=== PATIENT | male | born 1945 | race Caucasian/White ===

== ENCOUNTER 2017-03-04 08:54 | Inpatient (IN) | payer MEDICAID, OTHER ==
[~2017-03-04] VITALS: Ht 165.1 cm; Wt 79.4 kg
[~2017-03-04 08:54] MED LIST: FLUT1DIS3 INH; GLIP10TA10 PO; IPRA4AER IH; LISI10TA5 PO; METF10002 PO; PREDNISONE PO; TAMS0.4C31 PO
[2017-03-04] MEDS ORDERED: IPRATROPIUM/ALBUTEROL 0.5-3(2.5)MG/3ML NEB HHN ONE ×2 (10:45→17:00)
[2017-03-04] MEDS ORDERED: METHYLPREDNISOLONE SOD SUCC 40 MG/ML VIAL IV ONE (11:30)
[2017-03-04 11:31] LABS: BASOPHILS % 0.8 % (0.0-2.0); EOSINOPHILS % 2.7 % (0.0-5.0); HEMATOCRIT. 36.9 % (42.0-52.0); HEMOGLOBIN. 12.6 g/dL (14.0-18.0); LYMPHOCYTES % 18.9 % (20.0-50.0); MEAN CORPUSCULAR HEMOGLOBIN 27.8 pg (28.0-32.0); MEAN CORPUSCULAR VOLUME 81.3 fL (80.0-94.0); MEAN PLATELET VOLUME 8.4 fl (7.4-10.4); MONOCYTES % 12.4 % (2.0-8.0); NEUTROPHILS % 65.2 % (40.0-76.0); PLATELET 195 x1000/uL (130-400); RED BLOOD CELL COUNT 4.54 mill/uL (4.7-6.1)
[2017-03-04 11:45] LABS: CARBON DIOXIDE 29 mEq/L (21-32); CHLORIDE 106 mEq/L (98-107)
[2017-03-04 11:47] LABS: BG BASE EXCESS 4.2 mmol/L (-2.0-2.0); BG CARBOXYHEMOGLOBIN 0.3 % (0.5-1.5); BG DEOXYHEMOGLOBIN 4.8 % (0.0-5.0); BG FRACTION INSPIRED OXYGEN 28; BG HCO3 ACT 28.4 mmol/L (22.0-26.0); BG METHEMOGLOBIN 0.1 % (0.0-1.5); BG OXYGEN SATURATION 95.2 % (92.0-98.5); BG OXYHEMOGLOBIN 94.8 % (94.0-97.0); BG PCO2 40.9 mmHg (35.0-45.0); BG PH 7.459 (7.350-7.450); BG PO2 74.8 mmHg (75.0-100.0); BG SAMPLE SITE RIGHT RADIAL; BG TOTAL HEMOGLOBIN 13.1 g/dL (12.0-18.0); BG VENT MODE NASAL CANNULA
[2017-03-04 11:57] LABS: CLARITY URINE CLEAR (CLEAR); COLOR URINE YELLOW (YELLOW); GLUCOSE URINE NEGATIVE (NEGATIVE); KETONES URINE NEGATIVE (NEGATIVE); LEUKOCYTE ESTERASE URINE NEGATIVE (NEGATIVE); NITRITE URINE NEGATIVE (NEGATIVE); OCCULT BLOOD URINE NEGATIVE (NEGATIVE); PH URINE 6.5 (4.5-8.0); PROTEIN URINE NEGATIVE (NEGATIVE); SPECIFIC GRAVITY URINE 1.021 (1.005-1.030)
[2017-03-04 12:48] LABS: *AMPHETAMINES SCREEN URINE NEGATIVE (NEGATIVE); *BARBITURATES SCREEN URINE NEGATIVE (NEGATIVE); *BENZODIAZEPINES SCREEN URINE NEGATIVE (NEGATIVE); *COCAINE SCREEN URINE NEGATIVE (NEGATIVE); CANNABINOID URINE SCREEN NEGATIVE (NEGATIVE); METHADONE URINE SCREEN NEGATIVE (NEGATIVE); OPIATES URINE SCREEN NEGATIVE (NEGATIVE); PHENCYCLIDINE URINE SCREEN NEGATIVE (NEGATIVE)
[2017-03-04] MEDS ORDERED: POTASSIUM CHLORIDE 20MEQ TABLET SR PO ONE (13:00)
[2017-03-04 18:44] VITALS: BP 131/59
[2017-03-04 20:00] VITALS: BP 131/65
[2017-03-04 21:30] VITALS: BP 131/65
[2017-03-04] MEDS ORDERED: NA PHOS,M-B/NA PHOS,DI-BA ENEMA 118ML PR PRN (21:30)
[2017-03-04] MEDS ORDERED: DEXTROSE 50% WATER 50ML SYRINGE IV PRN (21:30)
[2017-03-04] MEDS ORDERED: ACETAMINOPHEN 325MG TABLET PO PRN (21:30)
[2017-03-04] MEDS ORDERED: CLONIDINE 0.1MG TABLET PO PRN (21:30)
[2017-03-04] MEDS ORDERED: ACETAMINOPHEN 650MG SUPP PR PRN (21:30)
[2017-03-04] MEDS ORDERED: ACETAMINOPHEN 650MG/20.3ML UDC GT PRN (21:30)
[2017-03-04] MEDS ORDERED: ONDANSETRON HCL 4MG/2ML VIAL IV PRN (22:04)
[2017-03-04] MEDS ORDERED: MAGNESIUM/ALUMINUM HYDROXIDE/SIMETHICONE 30ML UDC PO PRN (22:05)
[2017-03-04] MEDS ORDERED: HYDROCODONE/ACETAMINOPHEN 5/325MG TABLET PO PRN (22:05)
[2017-03-04] MEDS ORDERED: IPRATROPIUM/ALBUTEROL 0.5-3(2.5)MG/3ML NEB INH PRN (22:05)
[2017-03-04] MEDS ORDERED: IPRATROPIUM/ALBUTEROL 0.5-3(2.5)MG/3ML NEB ONE (22:13)
[2017-03-04] MEDS: GLIPIZIDE 10MG TABLET PO SCH (22:34)
[2017-03-04] MEDS: TAMSULOSIN HCL 0.4MG SR CAPSULE PO SCH (22:34)
[2017-03-04] MEDS: LISINOPRIL 10MG TABLET PO SCH (22:35)
[2017-03-04] MEDS: SODIUM CHLORIDE 0.9% INJ 3ML FLUSH IVF SCH (22:35)
[2017-03-04] MEDS: METHYLPREDNISOLONE SOD SUCC 125 MG/2 ML VIAL IV SCH (22:35)
[2017-03-05] VITALS: BP 142/86
[2017-03-05] MEDS: IPRATROPIUM/ALBUTEROL 0.5-3(2.5)MG/3ML NEB INH SCH ×5 (01:46→20:32)
[2017-03-05 04:00] VITALS: BP 131/68
[2017-03-05] MEDS ORDERED: GUAIFENESIN 200MG TABLET PO PRN (06:00)
[2017-03-05] MEDS: BLOOD SUGAR DIAGNOSTIC STRIP TEST SCH ×4 (06:24→21:00)
[2017-03-05] MEDS: SODIUM CHLORIDE 0.9% INJ 3ML FLUSH IVF SCH ×3 (06:29→23:24)
[2017-03-05] MEDS: METHYLPREDNISOLONE SOD SUCC 125 MG/2 ML VIAL IV SCH ×4 (06:30→23:23)
[2017-03-05 06:39] LABS: CARBON DIOXIDE 28 mEq/L (21-32); CHLORIDE 102 mEq/L (98-107)
[2017-03-05 08:00] VITALS: BP 141/74
[2017-03-05] MEDS: TAMSULOSIN HCL 0.4MG SR CAPSULE PO SCH (08:00)
[2017-03-05] MEDS: GLIPIZIDE 10MG TABLET PO SCH ×2 (08:00→17:14)
[2017-03-05] MEDS: LISINOPRIL 10MG TABLET PO SCH (08:01)
[2017-03-05] MEDS: INSULIN LISPRO 100 UNITS/ML SUBCUT SCH ×4 (08:35→23:57)
[2017-03-05 12:00] VITALS: BP 132/70
[2017-03-05] MEDS: GUAIFENESIN 600MG ER TABLET PO SCH ×2 (12:54→23:22)
[2017-03-05] MEDS: BUDESONIDE 0.5MG/2ML NEB HHN SCH ×2 (13:36→20:37)
[2017-03-05 16:00] VITALS: BP 135/61
[2017-03-05 19:32] LABS: HEMATOCRIT. 40.1 % (42.0-52.0); HEMOGLOBIN. 13.7 g/dL (14.0-18.0); MEAN CORPUSCULAR HEMOGLOBIN 27.7 pg (28.0-32.0); PLATELET 218 x1000/uL (130-400); RED BLOOD CELL COUNT 4.95 mill/uL (4.7-6.1); RED CELL DISTRIBUTION WIDTH 13.9 % (11.6-14.6)
[2017-03-05 19:36] LABS: CHLORIDE 102 mEq/L (98-107)
[2017-03-05 19:45] LABS: CARBON DIOXIDE 27 mEq/L (21-32)
[2017-03-05 20:00] VITALS: BP 142/70
[2017-03-05 21:24] LABS: PLATELET ESTIMATE NORMAL
[2017-03-06] VITALS: BP 142/63
[2017-03-06] MEDS: IPRATROPIUM/ALBUTEROL 0.5-3(2.5)MG/3ML NEB INH SCH ×6 (00:27→20:43)
[2017-03-06 04:00] VITALS: BP 133/64
[2017-03-06] MEDS: METHYLPREDNISOLONE SOD SUCC 125 MG/2 ML VIAL IV SCH (07:17)
[2017-03-06] MEDS: SODIUM CHLORIDE 0.9% INJ 3ML FLUSH IVF SCH ×3 (07:20→22:25)
[2017-03-06] MEDS: BLOOD SUGAR DIAGNOSTIC STRIP TEST SCH ×4 (07:20→21:16)
[2017-03-06 08:00] VITALS: BP 126/63
[2017-03-06] MEDS: BUDESONIDE 0.5MG/2ML NEB HHN SCH ×3 (08:10→20:43)
[2017-03-06] MEDS: LISINOPRIL 10MG TABLET PO SCH (08:21)
[2017-03-06] MEDS: GLIPIZIDE 10MG TABLET PO SCH ×2 (08:21→18:32)
[2017-03-06] MEDS: TAMSULOSIN HCL 0.4MG SR CAPSULE PO SCH (08:21)
[2017-03-06] MEDS: GUAIFENESIN 600MG ER TABLET PO SCH ×2 (08:21→21:12)
[2017-03-06] MEDS: INSULIN LISPRO 100 UNITS/ML SUBCUT SCH ×4 (08:40→21:29)
[2017-03-06 12:00] VITALS: BP 132/78
[2017-03-06] MEDS: METHYLPREDNISOLONE SOD SUCC 40 MG/ML VIAL IV SCH ×2 (13:32→22:25)
[2017-03-06 16:00] VITALS: BP 130/64
[2017-03-06 19:48] LABS: HEMOGLOBIN. 13.6 g/dL (14.0-18.0); MEAN CORPUSCULAR HEMOGLOBIN 27.7 pg (28.0-32.0); MEAN CORPUSCULAR VOLUME 81.5 fL (80.0-94.0); MEAN PLATELET VOLUME 8.8 fl (7.4-10.4); PLATELET 214 x1000/uL (130-400); RED CELL DISTRIBUTION WIDTH 13.8 % (11.6-14.6)
[2017-03-06 20:07] LABS: CHLORIDE 100 mEq/L (98-107)
[2017-03-06 20:14] LABS: CARBON DIOXIDE 26 mEq/L (21-32)
[2017-03-06 21:34] LABS: PLATELET ESTIMATE NORMAL
[2017-03-07] MEDS: IPRATROPIUM/ALBUTEROL 0.5-3(2.5)MG/3ML NEB INH SCH ×6 (00:37→21:29)
[2017-03-07] MEDS: METHYLPREDNISOLONE SOD SUCC 40 MG/ML VIAL IV SCH (05:29)
[2017-03-07] MEDS: BLOOD SUGAR DIAGNOSTIC STRIP TEST SCH ×4 (06:53→20:26)
[2017-03-07] MEDS: LISINOPRIL 10MG TABLET PO SCH (07:51)
[2017-03-07] MEDS: GUAIFENESIN 600MG ER TABLET PO SCH (07:51)
[2017-03-07] MEDS: GLIPIZIDE 10MG TABLET PO SCH ×2 (07:52→17:47)
[2017-03-07] MEDS: TAMSULOSIN HCL 0.4MG SR CAPSULE PO SCH (07:52)
[2017-03-07] MEDS: INSULIN LISPRO 100 UNITS/ML SUBCUT SCH ×4 (07:54→21:01)
[2017-03-07 08:00] VITALS: BP 139/73
[2017-03-07 12:00] VITALS: BP 138/72
[2017-03-07] MEDS: SODIUM CHLORIDE 0.9% INJ 3ML FLUSH IVF SCH ×2 (14:09→22:05)
[2017-03-07] MEDS ORDERED: PROMETHAZINE/DEXTROMETHORPHAN 6.25-15MG/5ML BOTTLE 120ML PO PRN (14:30)
[2017-03-07 16:00] VITALS: BP 125/68
[2017-03-07] MEDS: PREDNISONE 20MG TABLET PO SCH (17:47)
[2017-03-07 20:00] VITALS: BP 132/67
[2017-03-07] MEDS: BUDESONIDE 0.5MG/2ML NEB HHN SCH (21:31)
[2017-03-08] VITALS: BP 136/67
[2017-03-08] MEDS: PROMETHAZINE LIQUID 6.25MG/5ML 118ML PO SCH ×3 (00:32→11:22)
[2017-03-08] MEDS: IPRATROPIUM/ALBUTEROL 0.5-3(2.5)MG/3ML NEB INH SCH ×4 (00:58→11:41)
[2017-03-08] MEDS: SODIUM CHLORIDE 0.9% INJ 3ML FLUSH IVF SCH (06:37)
[2017-03-08] MEDS: BLOOD SUGAR DIAGNOSTIC STRIP TEST SCH ×2 (06:40→12:14)
[2017-03-08] MEDS: BUDESONIDE 0.5MG/2ML NEB HHN SCH (07:50)
[2017-03-08 08:00] VITALS: BP 153/62
[2017-03-08] MEDS: INSULIN LISPRO 100 UNITS/ML SUBCUT SCH (08:22)
[2017-03-08] MEDS: GLIPIZIDE 10MG TABLET PO SCH (08:27)
[2017-03-08] MEDS: PREDNISONE 20MG TABLET PO SCH (08:28)
[2017-03-08] MEDS: TAMSULOSIN HCL 0.4MG SR CAPSULE PO SCH (08:28)
[2017-03-08] MEDS: LISINOPRIL 10MG TABLET PO SCH (08:28)
[2017-03-08 12:00] VITALS: BP 140/56
[2017-03-08 12:53] VITALS: BP 140/56
== END 2017-03-08 13:10 | disposition home or self-care (01) | DRG 140 ==
LOC: ER 11:03 → 6EST 16:10 → EDBEDREQ 16:14 → ENRESERV 16:25
PROVIDERS: ADMIT Family Medicine; ATTEND Family Medicine
DX: J44.1 Chronic obstructive pulmonary disease with (acute) exacerbation (principal); J96.00 Acute respiratory failure, unspecified whether with hypoxia or hypercapnia; E11.00 Type 2 diabetes mellitus with hyperosmolarity without nonketotic hyperglycemic-hyperosmolar coma (NKHHC); E11.9 Type 2 diabetes mellitus without complications; I10 Essential (primary) hypertension; J20.9 Acute bronchitis, unspecified; E78.00 Pure hypercholesterolemia, unspecified; J44.0 Chronic obstructive pulmonary disease with (acute) lower respiratory infection; Z79.84 Long term (current) use of oral hypoglycemic drugs; Z79.899 Other long term (current) drug therapy
CPT/HCPCS: 36415; 36600; 71010; 80053; 80305; 81003; 82375; 82805; 82962; 83036; 85025; 85651; 93005; 94640; 94664; 96374; 99285; J1815; J2920; J2930; J7512; J7620; J7626; Q0169

== ENCOUNTER 2022-05-28 14:04 | Inpatient (IN) | payer MEDICAID ==
[~2022-05-28] VITALS: Ht 165.1 cm; Wt 76.9 kg
[~2022-05-28 14:04] MED LIST changes: +ALBU18HF2 IH; +ATOR-2 MT; +FINA1TAB18 MT; +FLUT1DIS3 IH; +INSU100I28 SQ; +IPRA3AMP9 NEB; +LEVO25TA7 MT; +LEVO500T2 MT; -LISI10TA5 PO; +LOSA1TAB37 MT; +METF-416 PO; -METF10002 PO; +P20 MT; -PREDNISONE PO; +TAMS-11 MT; -TAMS0.4C31 PO
[2022-05-28] MEDS ORDERED: METHYLPREDNISOLONE SOD SUCC 125 MG/2 ML VIAL IV STA (14:08)
[2022-05-28] MEDS ORDERED: IPRATROPIUM BROMIDE (0.02%) 0.5MG/2.5ML NEB HHN STA (14:08)
[2022-05-28] MEDS ORDERED: MAGNESIUM 2 G PREMIX 50 ML IV ONE (14:15)
[2022-05-28] MEDS: ALBUTEROL (0.083%) 2.5MG/3ML NEB HHN SCH ×3 (14:36→14:38)
[2022-05-28 14:49] LABS: BASOPHILS % 0.8 % (0.0-2.0); EOSINOPHILS % 1.2 % (0.0-5.0); HEMATOCRIT. 33.3 % (42.0-52.0); HEMOGLOBIN. 11.2 g/dL (14.0-18.0); LYMPHOCYTES % 18.8 % (20.0-50.0); MEAN CORPUSCULAR HEMOGLOBIN 27.8 pg (28.0-32.0); MEAN CORPUSCULAR VOLUME 82.8 fL (80.0-94.0); MEAN PLATELET VOLUME 8.4 fl (7.4-10.4); MONOCYTES % 9.2 % (2.0-8.0); PLATELET 158 x1000/uL (130-400); RED BLOOD CELL COUNT 4.02 mill/uL (4.7-6.1); RED CELL DISTRIBUTION WIDTH 17.5 % (11.6-14.6)
[2022-05-28 14:55] LABS: CHLORIDE 100 mEq/L (98-107)
[2022-05-28 15:12] LABS: PARTIAL THROMBOPLASTIN TIME 22.5 sec (23.4-31.0); PROTHROMBIN TIME 10.3 sec (9.6-11.0)
[2022-05-28 17:30] LABS: BG BASE EXCESS 6.3 mmol/L (-2.0-2.0); BG CARBOXYHEMOGLOBIN 0.4 % (0.5-1.5); BG DEOXYHEMOGLOBIN 3.4 % (0.0-5.0); BG FRACTION INSPIRED OXYGEN 30; BG HCO3 ACT 30.9 mmol/L (22.0-26.0); BG METHEMOGLOBIN 0.6 % (0.0-1.5); BG OXYGEN SATURATION 96.6 % (92.0-98.5); BG OXYHEMOGLOBIN 95.6 % (94.0-97.0); BG PCO2 44.9 mmHg (35.0-45.0); BG PH 7.456 (7.350-7.450); BG PO2 84.8 mmHg (75.0-100.0); BG SAMPLE SITE LEFT RADIAL; BG TOTAL HEMOGLOBIN 11.6 g/dL (12.0-18.0); BG TOTAL RESPIRATORY RATE 26 b/min; BG VENT MODE MASK - BIPAP
[2022-05-28] MEDS ORDERED: AZITHROMYCIN 500MG/250ML 250 ML IV ONE (17:45)
[2022-05-28] MEDS ORDERED: HYDRALAZINE 20MG/ML VIAL IV PRN (19:15)
[2022-05-28] MEDS ORDERED: CLONIDINE 0.1MG TABLET PO PRN (19:15)
[2022-05-28] MEDS ORDERED: ACETAMINOPHEN 325MG TABLET PO PRN ×2 (19:15)
[2022-05-28] MEDS ORDERED: POTASSIUM CHLORIDE INJ 40 MEQ in DEXT 5% WATER 250 ML IV ONE (19:15)
[2022-05-28] MEDS ORDERED: DIPHENHYDRAMINE 50MG/ML VIAL IV PRN (19:15)
[2022-05-28] MEDS ORDERED: DEXTROSE 50% WATER 50ML SYRINGE IV PRN (19:15)
[2022-05-28] MEDS ORDERED: LORAZEPAM 0.5MG TABLET PO PRN (19:15)
[2022-05-28] MEDS ORDERED: IPRATROPIUM/ALBUTEROL 0.5-3(2.5)MG/3ML NEB NEB PRN (19:15)
[2022-05-28] MEDS ORDERED: ONDANSETRON HCL 4MG/2ML INJ IV PRN (19:15)
[2022-05-28] MEDS ORDERED: MAGNESIUM/ALUMINUM HYDROXIDE/SIMETHICONE 30ML UDC PO PRN (19:15)
[2022-05-28] MEDS ORDERED: ZOLPIDEM TARTRATE 5MG TABLET PO PRN (19:15)
[2022-05-28] MEDS: IPRATROPIUM/ALBUTEROL 0.5-3(2.5)MG/3ML NEB HHN SCH (21:12)
[2022-05-28] MEDS: ENOXAPARIN 40MG/0.4ML SYR SUBCUT SCH (21:15)
[2022-05-28] MEDS: KCL 20MEQ/100ML X 2 FOR TOTAL KCL 40MEQ/200ML IV SCH ×2 (21:15→22:30)
[2022-05-28] MEDS: INSULIN LISPRO 100 UNITS/ML SUBCUT SCH (21:45)
[2022-05-28] MEDS: ATORVASTATIN CALCIUM 40MG TABLET PO SCH (21:46)
[2022-05-28] MEDS: FAMOTIDINE 20MG TABLET PO SCH (21:46)
[2022-05-28] MEDS: BLOOD SUGAR DIAGNOSTIC STRIP TEST SCH (21:49)
[2022-05-28] MEDS: GUAIFENESIN 600MG ER TABLET PO SCH (22:30)
[2022-05-28] MEDS: SODIUM CHLORIDE 0.9% INJ 3ML FLUSH IVF SCH (22:56)
[2022-05-28] MEDS: INSULIN GLARGINE 100 UNITS/ML SUBCUT SCH (23:10)
[2022-05-29] VITALS (15 sets, daily range): BP systolic 123–181; BP diastolic 65–88
[2022-05-29] MEDS: IPRATROPIUM/ALBUTEROL 0.5-3(2.5)MG/3ML NEB HHN SCH ×6 (00:35→20:50)
[2022-05-29] MEDS: BLOOD SUGAR DIAGNOSTIC STRIP TEST SCH ×4 (06:03→20:51)
[2022-05-29] MEDS: LEVOTHYROXINE SODIUM 25MCG TABLET PO SCH (06:25)
[2022-05-29] MEDS: SODIUM CHLORIDE 0.9% INJ 3ML FLUSH IVF SCH ×3 (06:28→20:51)
[2022-05-29] MEDS: INSULIN LISPRO 100 UNITS/ML SUBCUT SCH ×5 (06:29→20:51)
[2022-05-29] MEDS: TAMSULOSIN HCL 0.4MG SR CAPSULE PO SCH (07:43)
[2022-05-29] MEDS: INSULIN GLARGINE 100 UNITS/ML SUBCUT SCH ×2 (07:43→21:10)
[2022-05-29] MEDS: FINASTERIDE 5MG TABLET PO SCH (07:44)
[2022-05-29] MEDS: FAMOTIDINE 20MG TABLET PO SCH ×2 (07:44→21:09)
[2022-05-29] MEDS: GUAIFENESIN 600MG ER TABLET PO SCH ×2 (07:44→21:09)
[2022-05-29] MEDS ORDERED: INFLUENZA VACCINE 05/PF 0.5 ML SYRINGE IM ONE (09:30)
[2022-05-29 10:22] LABS: BASOPHILS % 0.4 % (0.0-2.0); HEMATOCRIT. 33.4 % (42.0-52.0); MEAN CORPUSCULAR HEMOGLOBIN 27.7 pg (28.0-32.0); MEAN CORPUSCULAR VOLUME 84.1 fL (80.0-94.0); MEAN PLATELET VOLUME 8.2 fl (7.4-10.4); MONOCYTES % 9.3 % (2.0-8.0); NEUTROPHILS % 74.3 % (40.0-76.0); PLATELET 154 x1000/uL (130-400); RED BLOOD CELL COUNT 3.97 mill/uL (4.7-6.1)
[2022-05-29 10:30] LABS: CHLORIDE 103 mEq/L (98-107)
[2022-05-29 10:46] LABS: PHOSPHORUS 4.1 mg/dL (2.5-4.9)
[2022-05-29] MEDS: BUDESONIDE 0.5MG/2ML NEB HHN SCH ×2 (12:07→21:04)
[2022-05-29] MEDS ORDERED: HYDROCODONE/ACETAMINOPHEN 5/325MG TABLET PO PRN (14:30)
[2022-05-29] MEDS: MONTELUKAST SODIUM 10MG TABLET PO SCH (17:28)
[2022-05-29] MEDS: ATORVASTATIN CALCIUM 40MG TABLET PO SCH (21:09)
[2022-05-29] MEDS: ENOXAPARIN 40MG/0.4ML SYR SUBCUT SCH (21:10)
[2022-05-30] VITALS (12 sets, daily range): BP systolic 116–160; BP diastolic 63–87
[2022-05-30] MEDS: IPRATROPIUM/ALBUTEROL 0.5-3(2.5)MG/3ML NEB HHN SCH ×6 (00:36→21:19)
[2022-05-30] MEDS: INSULIN LISPRO 100 UNITS/ML SUBCUT SCH ×4 (08:00→21:12)
[2022-05-30] MEDS: BLOOD SUGAR DIAGNOSTIC STRIP TEST SCH ×4 (08:02→21:00)
[2022-05-30] MEDS: LEVOTHYROXINE SODIUM 25MCG TABLET PO SCH (08:14)
[2022-05-30] MEDS: BUDESONIDE 0.5MG/2ML NEB HHN SCH ×2 (08:27→21:26)
[2022-05-30] MEDS: TAMSULOSIN HCL 0.4MG SR CAPSULE PO SCH (09:11)
[2022-05-30] MEDS: FAMOTIDINE 20MG TABLET PO SCH ×2 (09:12→21:11)
[2022-05-30] MEDS: GUAIFENESIN 600MG ER TABLET PO SCH ×2 (09:12→21:11)
[2022-05-30] MEDS: FINASTERIDE 5MG TABLET PO SCH (09:12)
[2022-05-30] MEDS: INSULIN GLARGINE 100 UNITS/ML SUBCUT SCH ×2 (09:13→22:04)
[2022-05-30] MEDS: SODIUM CHLORIDE 0.9% INJ 3ML FLUSH IVF SCH ×2 (14:07→21:12)
[2022-05-30] MEDS ORDERED: NALOXONE HCL 0.4MG/ML VIAL IV PRN (15:45)
[2022-05-30] MEDS: MONTELUKAST SODIUM 10MG TABLET PO SCH (17:46)
[2022-05-30] MEDS: ATORVASTATIN CALCIUM 40MG TABLET PO SCH (21:11)
[2022-05-30] MEDS: ENOXAPARIN 40MG/0.4ML SYR SUBCUT SCH (21:11)
[2022-05-31] VITALS (14 sets, daily range): BP systolic 125–170; BP diastolic 33–112
[2022-05-31] MEDS: IPRATROPIUM/ALBUTEROL 0.5-3(2.5)MG/3ML NEB HHN SCH ×6 (01:27→20:13)
[2022-05-31] MEDS: SODIUM CHLORIDE 0.9% INJ 3ML FLUSH IVF SCH ×3 (06:00→22:00)
[2022-05-31] MEDS: BLOOD SUGAR DIAGNOSTIC STRIP TEST SCH ×4 (07:30→21:00)
[2022-05-31] MEDS: BUDESONIDE 0.5MG/2ML NEB HHN SCH ×2 (08:34→20:13)
[2022-05-31] MEDS: FINASTERIDE 5MG TABLET PO SCH (08:54)
[2022-05-31] MEDS: GUAIFENESIN 600MG ER TABLET PO SCH ×2 (08:54→21:20)
[2022-05-31] MEDS: TAMSULOSIN HCL 0.4MG SR CAPSULE PO SCH (08:54)
[2022-05-31] MEDS: LEVOTHYROXINE SODIUM 25MCG TABLET PO SCH (08:54)
[2022-05-31] MEDS: FAMOTIDINE 20MG TABLET PO SCH ×2 (11:50→21:20)
[2022-05-31] MEDS: INSULIN LISPRO 100 UNITS/ML SUBCUT SCH ×4 (11:52→21:20)
[2022-05-31] MEDS: INSULIN GLARGINE 100 UNITS/ML SUBCUT SCH ×2 (11:53→21:21)
[2022-05-31] MEDS: MONTELUKAST SODIUM 10MG TABLET PO SCH (17:58)
[2022-05-31] MEDS: ATORVASTATIN CALCIUM 40MG TABLET PO SCH (21:20)
[2022-05-31] MEDS: ENOXAPARIN 40MG/0.4ML SYR SUBCUT SCH (21:20)
[2022-06-01] VITALS (9 sets, daily range): BP systolic 121–161; BP diastolic 61–89
[2022-06-01] MEDS: IPRATROPIUM/ALBUTEROL 0.5-3(2.5)MG/3ML NEB HHN SCH ×5 (00:23→15:34)
[2022-06-01] MEDS: BLOOD SUGAR DIAGNOSTIC STRIP TEST SCH ×2 (07:30→12:30)
[2022-06-01] MEDS: INSULIN LISPRO 100 UNITS/ML SUBCUT SCH ×2 (08:00→13:45)
[2022-06-01] MEDS: BUDESONIDE 0.5MG/2ML NEB HHN SCH (08:18)
[2022-06-01] MEDS: INSULIN GLARGINE 100 UNITS/ML SUBCUT SCH (10:00)
[2022-06-01] MEDS: GUAIFENESIN 600MG ER TABLET PO SCH (10:17)
[2022-06-01] MEDS: FAMOTIDINE 20MG TABLET PO SCH (10:17)
[2022-06-01] MEDS: TAMSULOSIN HCL 0.4MG SR CAPSULE PO SCH (10:17)
[2022-06-01] MEDS: LEVOTHYROXINE SODIUM 25MCG TABLET PO SCH (10:18)
[2022-06-01] MEDS: FINASTERIDE 5MG TABLET PO SCH (10:18)
[2022-06-01] MEDS ORDERED: BUDESONIDE 0.5MG/2ML NEB HHN SCH (13:15)
[2022-06-01] MEDS ORDERED: OXYMETAZOLINE HCL NASAL SPRAY 15ML BOTHNSTRLS PRN ×3 (13:45→14:15)
== END 2022-06-01 16:35 | disposition home or self-care (01) | DRG 140 ==
LOC: ER 14:36 → EDBEDREQ 16:41 → EDBEDREQSVC 16:41 → MICUSO 17:43 → EDBEDREQTM 17:44 → 5EST 05-29 07:44
PROVIDERS: ADMIT Internal Medicine; ATTEND Internal Medicine
PROC: 5A09357 Assistance with Respiratory Ventilation, Less than 24 Consecutive Hours, Continuous Positive Airway Pressure (ICD-10-PCS; principal; 2022-05-28)
DX: J44.1 Chronic obstructive pulmonary disease with (acute) exacerbation (principal); J96.01 Acute respiratory failure with hypoxia; E44.1 Mild protein-calorie malnutrition; E87.3 Alkalosis; Z20.822 Contact with and (suspected) exposure to COVID-19; I50.9 Heart failure, unspecified; I11.0 Hypertensive heart disease with heart failure; E11.9 Type 2 diabetes mellitus without complications; E03.9 Hypothyroidism, unspecified; R04.0 Epistaxis; E87.6 Hypokalemia; Z83.3 Family history of diabetes mellitus; Z87.891 Personal history of nicotine dependence; Z85.46 Personal history of malignant neoplasm of prostate; Z92.3 Personal history of irradiation; Z68.28 Body mass index [BMI] 28.0-28.9, adult
CPT/HCPCS: 36415; 36600; 71045; 80048; 80053; 82375; 82805; 82962; 83036; 83735; 83880; 84100; 84443; 84484; 85025; 87426; 87804; 90686; 93005; 93970; 94640; 99291; J0456; J1650; J1815; J2930; J3475; J3480; J7626

== ENCOUNTER 2023-02-24 08:17 | Emergency (ER) | payer MEDICAID ==
[~2023-02-24] VITALS: Ht 162.6 cm; Wt 72.0 kg
[2023-02-24 08:19] VITALS: O2SAT 100
[2023-02-24] MEDS ORDERED: METHYLPREDNISOLONE SOD SUCC 125MG/2ML (ACT-O-VIAL) IV STA (08:49)
[2023-02-24] MEDS ORDERED: HYDROCODONE/ACETAMINOPHEN 5/325MG TABLET PO ONE (09:00)
[2023-02-24] MEDS: METHYLPREDNISOLONE SOD SUCC 125MG VIAL IV NR ×2 (09:16→09:17)
[2023-02-24 09:29] LABS: HEMOGLOBIN. 10.9 g/dL (14.0-18.0); MONOCYTES % 5.6 % (2.0-8.0); WHITE BLOOD COUNT 8.5 x1000/uL (4.5-11.0)
[2023-02-24 09:31] LABS: BASOPHILS % 0.3 % (0.0-2.0); EOSINOPHILS % 2.4 % (0.0-5.0); HEMATOCRIT. 32.3 % (42.0-52.0); LYMPHOCYTES % 14.6 % (20.0-50.0); MEAN CORPUSCULAR HGB CONC 33.7 g/dL (31.0-37.0); MEAN CORPUSCULAR VOLUME 83.2 fL (80.0-94.0); MEAN PLATELET VOLUME 8.2 fl (7.4-10.4); NEUTROPHILS % 77.1 % (40.0-76.0); PLATELET 204 x1000/uL (130-400); RED BLOOD CELL COUNT 3.89 mill/uL (4.7-6.1); RED CELL DISTRIBUTION WIDTH 15.9 % (11.6-14.6)
[2023-02-24 10:13] LABS: CHLORIDE 105 mEq/L (98-107); INDEX HEMOLYSI 1 (1-3); INDEX ICTERIC 1 (1-4); INDEX LIPEMIC 1 (1-3); POTASSIUM 3.1 mEq/L (3.5-5.1); SODIUM 140 mEq/L (136-145)
[2023-02-24 10:24] LABS: ALANINE AMINOTRANSFERASE 12 IU/L (13-61); ALBUMIN 3.7 g/dL (3.4-5.0); ASPARTATE AMINOTRANSFERASE 7 IU/L (15-37); BILIRUBIN TOTAL 0.8 mg/dL (0.1-1.0); CARBON DIOXIDE 26 mEq/L (21-32); CREATININE 0.8 mg/dL (0.6-1.3); GLUCOSE 189 mg/dL (70-105); NT PRO B-TYPE NATRIURETIC PEP 118 pg/mL (5-125); PROTEIN TOTAL 7.1 g/dL (6.0-8.3); TROPONIN I HIGH SENSITIVITY 6 ng/L (<78); UREA NITROGEN BLOOD 10 mg/dL (7-21)
[2023-02-24] MEDS ORDERED: MAGNESIUM/ALUMINUM HYDROXIDE/SIMETHICONE 30ML UDC PO ONE (10:45)
[2023-02-24] MEDS ORDERED: ALBU6.7H3 INH (10:48)
[2023-02-24] MEDS ORDERED: P50 MT (10:48)
[2023-02-24 11:08] VITALS: BP 119/56; PULSE 99; RESP 15; TEMP 98.5
== END 2023-02-24 11:22 | disposition home or self-care (01) ==
LOC: ER 08:27
DX: I11.0 Hypertensive heart disease with heart failure (principal); I50.9 Heart failure, unspecified; J44.1 Chronic obstructive pulmonary disease with (acute) exacerbation; Z79.899 Other long term (current) drug therapy
CPT/HCPCS: 80053; 83880; 85025; 84484; 36415; 71045; 93005; 96374; 99291; J2930; Z7610 ×2

== ENCOUNTER 2023-05-27 17:00 | Emergency (ER) | payer MEDICAID ==
[~2023-05-27] VITALS: Ht 170.2 cm; Wt 78.0 kg
[~2023-05-27 17:00] MED LIST changes: +ALBU6.7H3 INH; +P50 MT
[2023-05-27 17:24] VITALS: O2SAT 99
[2023-05-27] MEDS ORDERED: ACETAMINOPHEN 325MG TABLET PO STA (18:01)
[2023-05-27 20:57] LABS: BASOPHILS % 0.8 % (0.0-2.0); EOSINOPHILS % 5.3 % (0.0-5.0); HEMATOCRIT. 35.9 % (42.0-52.0); HEMOGLOBIN. 11.8 g/dL (14.0-18.0); LYMPHOCYTES % 18.9 % (20.0-50.0); MEAN CORPUSCULAR HEMOGLOBIN 26.7 pg (28.0-32.0); MEAN CORPUSCULAR HGB CONC 32.8 g/dL (31.0-37.0); MEAN CORPUSCULAR VOLUME 81.3 fL (80.0-94.0); MEAN PLATELET VOLUME 8.4 fl (7.4-10.4); MONOCYTES % 6.4 % (2.0-8.0); NEUTROPHILS % 68.6 % (40.0-76.0); PLATELET 217 x1000/uL (130-400); RED BLOOD CELL COUNT 4.41 mill/uL (4.7-6.1); RED CELL DISTRIBUTION WIDTH 14.5 % (11.6-14.6); WHITE BLOOD COUNT 6.7 x1000/uL (4.5-11.0)
[2023-05-27] MEDS ORDERED: ACETAMINOPHEN 325MG TABLET PO NR (21:15)
[2023-05-27 21:18] LABS: ALANINE AMINOTRANSFERASE < 7 IU/L (10-49); ALBUMIN 4.7 g/dL (3.2-4.8); ASPARTATE AMINOTRANSFERASE 13 IU/L (<34); BILIRUBIN TOTAL 0.8 mg/dL (0.1-1.0); CALCIUM 9.9 mg/dL (8.7-10.4); CARBON DIOXIDE 29 mEq/L (21-32); CHLORIDE 105 mEq/L (98-107); CREATININE 0.9 mg/dL (0.6-1.3); GLUCOSE 102 mg/dL (70-105); POTASSIUM 4.4 mEq/L (3.5-5.1); PROTEIN TOTAL 7.6 g/dL (6.0-8.3); SODIUM 141 mEq/L (136-145); UREA NITROGEN BLOOD 8 mg/dL (9-23)
[2023-05-27 21:28] LABS: TROPONIN I HIGH SENSITIVITY < 4 ng/L (3.0-53)
[2023-05-27 23:10] VITALS: BP 111/58; PULSE 91; RESP 20; TEMP 99.1
[2023-05-27] MEDS ORDERED: IBUPROFEN 600MG TABLET PO ONE (23:15)
== END 2023-05-28 00:54 | disposition home or self-care (01) ==
LOC: ER 17:00
DX: S01.21XA Laceration without foreign body of nose, initial encounter (principal); I11.0 Hypertensive heart disease with heart failure; I50.9 Heart failure, unspecified; E11.9 Type 2 diabetes mellitus without complications; J44.9 Chronic obstructive pulmonary disease, unspecified; W01.0XXA Fall on same level from slipping, tripping and stumbling without subsequent striking against object, initial encounter; Y93.89 Activity, other specified; Y92.89 Other specified places as the place of occurrence of the external cause; Y99.8 Other external cause status
CPT/HCPCS: 80053; 85025; 84484; 36415; 71045; 73030; 73100; 73130; 70450; 70486; 93005; 99285; Z7610

== ENCOUNTER 2023-07-25 16:30 | Inpatient (IN) | payer MEDICAID ==
[~2023-07-25] VITALS: Ht 165.1 cm; Wt 73.0 kg
[2023-07-25] MEDS ORDERED: METHYLPREDNISOLONE SOD SUCC 125MG/2ML (ACT-O-VIAL) IV STA (17:27)
[2023-07-25] MEDS ORDERED: IPRATROPIUM BROMIDE (0.02%) 0.5MG/2.5ML NEB HHN STA (17:27)
[2023-07-25] MEDS ORDERED: ALBUTEROL (0.083%) 2.5MG/3ML NEB HHN SCH (17:30)
[2023-07-25 20:19] LABS: ALANINE AMINOTRANSFERASE < 7 IU/L (10-49); ALBUMIN 4.3 g/dL (3.2-4.8); ASPARTATE AMINOTRANSFERASE 9 IU/L (<34); BILIRUBIN TOTAL 0.8 mg/dL (0.1-1.0); CALCIUM 9.5 mg/dL (8.7-10.4); CARBON DIOXIDE 25 mEq/L (21-32); CHLORIDE 103 mEq/L (98-107); CREATININE 0.8 mg/dL (0.6-1.3); GLUCOSE 117 mg/dL (70-105); HEMATOCRIT. 34.2 % (42.0-52.0); HEMOGLOBIN. 10.9 g/dL (14.0-18.0); MEAN CORPUSCULAR VOLUME 84.4 fL (80.0-94.0); MEAN PLATELET VOLUME 8.7 fl (7.4-10.4); PLATELET 154 x1000/uL (130-400); POTASSIUM 3.4 mEq/L (3.5-5.1); PROTEIN TOTAL 7.1 g/dL (6.0-8.3); RED BLOOD CELL COUNT 4.06 mill/uL (4.7-6.1); SODIUM 140 mEq/L (136-145); TROPONIN I HIGH SENSITIVITY 4 ng/L (3.0-53); UREA NITROGEN BLOOD 13 mg/dL (9-23); WHITE BLOOD COUNT 6.2 x1000/uL (4.5-11.0)
[2023-07-25] MEDS ORDERED: ALBUTEROL (0.5%) 2.5MG/0.5ML NEB HHN ONE ×2 (20:30)
[2023-07-25 20:31] LABS: DIFFERENTIAL COMMENT 1
[2023-07-25 20:57] LABS: PLATELET ESTIMATE NORMAL
[2023-07-26] VITALS (9 sets, daily range): BP systolic 135–149; BP diastolic 47–70; PULSE 78–107; RESP 18–22; TEMP 97.2–98.2; O2SAT 95–96
[2023-07-26] MEDS ORDERED: IPRATROPIUM BROMIDE (0.02%) 0.5MG/2.5ML NEB HHN STA (01:48)
[2023-07-26] MEDS ORDERED: ALBUTEROL (0.5%) 2.5MG/0.5ML NEB HHN ONE (02:00)
[2023-07-26] MEDS ORDERED: ALBUTEROL (0.083%) 2.5MG/3ML NEB HHN SCH (02:00)
[2023-07-26] MEDS ORDERED: IPRATROPIUM/ALBUTEROL 0.5-3(2.5)MG/3ML NEB HHN PRN (02:15)
[2023-07-26] MEDS ORDERED: MAGNESIUM/ALUMINUM HYDROXIDE/SIMETHICONE 30ML UDC PO PRN (02:15)
[2023-07-26] MEDS ORDERED: DIPHENHYDRAMINE 50MG/ML VIAL IV PRN (02:15)
[2023-07-26] MEDS ORDERED: METHYLPREDNISOLONE SOD SUCC 40MG VIAL IV SCH (02:15)
[2023-07-26] MEDS ORDERED: DEXTROSE 50% WATER 50ML SYRINGE IV PRN (02:15)
[2023-07-26] MEDS ORDERED: ONDANSETRON HCL 4MG/2ML INJ IV PRN (02:15)
[2023-07-26] MEDS ORDERED: ZOLPIDEM TARTRATE 5MG TABLET PO PRN (02:15)
[2023-07-26] MEDS ORDERED: BENZONATATE 200MG CAPSULE PO SCH (02:15)
[2023-07-26] MEDS ORDERED: ACETAMINOPHEN 325MG TABLET PO PRN ×2 (02:15)
[2023-07-26] MEDS: LEVOTHYROXINE SODIUM 25MCG TABLET PO SCH (06:32)
[2023-07-26] MEDS: BLOOD SUGAR DIAGNOSTIC STRIP TEST SCH ×3 (06:42→17:16)
[2023-07-26] MEDS: INSULIN LISPRO 100 UNITS/ML SUBCUT SCH ×3 (06:43→17:17)
[2023-07-26] MEDS: ENOXAPARIN 40MG/0.4ML SYR SUBCUT SCH (08:38)
[2023-07-26] MEDS: TAMSULOSIN HCL 0.4MG SR CAPSULE PO SCH (08:38)
[2023-07-26] MEDS: FINASTERIDE 5MG TABLET PO SCH (08:39)
[2023-07-26 09:55] LABS: BASOPHILS % 0.3 % (0.0-2.0); HEMATOCRIT. 35.3 % (42.0-52.0); LYMPHOCYTES % 10.5 % (20.0-50.0); MEAN CORPUSCULAR HGB CONC 34.1 g/dL (31.0-37.0); MEAN PLATELET VOLUME 8.5 fl (7.4-10.4); MONOCYTES % 4.3 % (2.0-8.0); NEUTROPHILS % 84.9 % (40.0-76.0); PLATELET 201 x1000/uL (130-400); RED CELL DISTRIBUTION WIDTH 16.3 % (11.6-14.6); WHITE BLOOD COUNT 5.8 x1000/uL (4.5-11.0)
[2023-07-26 10:27] LABS: CALCIUM 9.9 mg/dL (8.7-10.4); CARBON DIOXIDE 27 mEq/L (21-32); CHLORIDE 103 mEq/L (98-107); CREATININE 0.8 mg/dL (0.6-1.3); GLUCOSE 164 mg/dL (70-105); POTASSIUM 4.4 mEq/L (3.5-5.1); SODIUM 139 mEq/L (136-145); UREA NITROGEN BLOOD 18 mg/dL (9-23)
[2023-07-26] MEDS ORDERED: METHYLPREDNISOLONE SOD SUCC 40MG/ML (ACT-O-VIAL) IV SCH (10:38)
[2023-07-26] MEDS: INSULIN GLARGINE 100 UNITS/ML SUBCUT SCH (10:45)
[2023-07-26] MEDS: BENZONATATE 100MG CAPSULE PO SCH ×2 (10:45→17:16)
[2023-07-26] MEDS: SODIUM CHLORIDE 0.9% INJ 3ML FLUSH IVF SCH (14:16)
[2023-07-26] MEDS: IPRATROPIUM/ALBUTEROL 0.5-3(2.5)MG/3ML NEB HHN SCH ×2 (14:27→21:45)
[2023-07-26] MEDS ORDERED: MONTELUKAST SODIUM 10MG TABLET PO SCH (17:00)
[2023-07-26] MEDS: METHYLPREDNISOLONE SOD SUCC 40MG/ML (ACT-O-VIAL) IV SCH (17:16)
[2023-07-26] MEDS ORDERED: ATORVASTATIN CALCIUM 40MG TABLET PO SCH (21:00)
[2023-07-27] VITALS (9 sets, daily range): BP systolic 135–151; BP diastolic 51–87; PULSE 75–95; RESP 18–22; TEMP 97–98.7; O2SAT 94–97
[2023-07-27] MEDS: IPRATROPIUM/ALBUTEROL 0.5-3(2.5)MG/3ML NEB HHN SCH ×3 (00:30→14:00)
[2023-07-27] MEDS: METHYLPREDNISOLONE SOD SUCC 40MG/ML (ACT-O-VIAL) IV SCH ×2 (01:51→08:33)
[2023-07-27] MEDS: BENZONATATE 100MG CAPSULE PO SCH ×2 (01:51→08:33)
[2023-07-27] MEDS: LEVOTHYROXINE SODIUM 25MCG TABLET PO SCH (06:55)
[2023-07-27] MEDS: SODIUM CHLORIDE 0.9% INJ 3ML FLUSH IVF SCH ×3 (06:57→13:01)
[2023-07-27] MEDS: BLOOD SUGAR DIAGNOSTIC STRIP TEST SCH ×2 (07:10→12:15)
[2023-07-27] MEDS: INSULIN LISPRO 100 UNITS/ML SUBCUT SCH ×2 (07:40→12:17)
[2023-07-27] MEDS: FINASTERIDE 5MG TABLET PO SCH (08:32)
[2023-07-27] MEDS: ENOXAPARIN 40MG/0.4ML SYR SUBCUT SCH (08:32)
[2023-07-27] MEDS: TAMSULOSIN HCL 0.4MG SR CAPSULE PO SCH (08:32)
[2023-07-27] MEDS: INSULIN GLARGINE 100 UNITS/ML SUBCUT SCH (09:45)
== END 2023-07-27 16:30 | disposition home or self-care (01) | DRG 140 ==
LOC: ER 16:30 → 8WST 20:54
PROVIDERS: ADMIT Internal Medicine; ATTEND Internal Medicine
DX: J44.1 Chronic obstructive pulmonary disease with (acute) exacerbation (principal); J96.01 Acute respiratory failure with hypoxia; J20.9 Acute bronchitis, unspecified; J44.0 Chronic obstructive pulmonary disease with (acute) lower respiratory infection; I50.9 Heart failure, unspecified; I11.0 Hypertensive heart disease with heart failure; E03.9 Hypothyroidism, unspecified; E66.9 Obesity, unspecified; E11.9 Type 2 diabetes mellitus without complications; Z68.26 Body mass index [BMI] 26.0-26.9, adult; Z83.3 Family history of diabetes mellitus; Z85.46 Personal history of malignant neoplasm of prostate; Z87.891 Personal history of nicotine dependence; Z79.4 Long term (current) use of insulin; Z79.899 Other long term (current) drug therapy
CPT/HCPCS: 36415; 71045; 80048; 80053; 82962; 83036; 84484; 85025; 93005; 94640; 99285; J1650; J1815; J2920; J2930